=== PATIENT | female | born 1990 | race Caucasian/White ===

== ENCOUNTER 2016-08-18 18:57 | Emergency (ER) | payer OTHER ==
--- NOTE | 2016-08-18 19:17 | ER Document Report ---
ED Medical Screen (RME) - General Stated Complaint: SORE THROAT,COUGH,CONGESTION Mode of Arrival: Ambulatory Information source: Patient Notes: Patient presents to the emergency department with complaints of sore throat cough for the past 2 days. Denies fever vomiting diarrhea. Reports she is prone to strep. No strep exposure. I have greeted and performed a rapid initial assessment of this patient. A comprehensive ED assessment and evaluation of the patient, analysis of test results and completion of the medical decision making process will be conducted by additional ED providers. TRAVEL OUTSIDE OF THE [place] IN LAST 30 DAYS: No - Related Data Allergies/Adverse Reactions: ferumoxytol [From Feraheme] Adverse Reaction (Mild, Verified 06/07/15 15:37) Shortness of Breath Past Medical History - Past Medical History Cardiac Medical History: Denies: Hx Coronary Artery Disease, Hx Heart Attack, Hx Hypertension Pulmonary Medical History: Reports: Hx Bronchitis - hx of Denies: Hx Asthma, Hx COPD, Hx Pneumonia Neurological Medical History: Denies: Hx Cerebrovascular Accident, Hx Seizures Renal/ Medical History: Reports: Hx Ovarian Cysts - PCOS Musculoskeltal Medical History: Denies Hx Arthritis Psychiatric Medical History: Denies: Hx Depression Past Surgical History: Reports: Hx Cholecystectomy, Hx Dilation and Curettage, Hx Gynecologic Surgery - D&C at age of 11, Hx Oral Surgery - Immunizations Immunizations up to date: Yes Hx Diphtheria, Pertussis, Tetanus Vaccination: Yes
[2016-08-18 19:20] VITALS: BP 111/70
[2016-08-18] MEDS ORDERED: ALBUTEROL SULFATE 0.083% NEB 2.5 MG/3 ML AMPUL NEB ONE (21:03)
--- NOTE | 2016-08-18 21:08 | ER Document Report ---
HPI - HPI Patient complains to provider of: cough Pain Level: 3 Context: Patient is a 25-year-old female presents to the emergency Department complaining of cough and subsequent sore throat that started yesterday. Patient states that she is not a smoker has a history of strep throat. States she has occasional shortness of breath and wheezing from this cough. Denies any fever denies any history of asthma. - CARDIOVASCULAR Cardiovascular: DENIES: Chest pain - REPRODUCTIVE LMP: unknown Reproductive: DENIES: : - DERM Skin Color: Normal Past Medical History - General Information source: Patient - Social History Smoking Status: Never Smoker Chew tobacco use (# tins/day): No Frequency of alcohol use: None Drug Abuse: None Family History: Arthritis, Hyperlipidemia, Hypertension, Thyroid Disfunction Patient has suicidal ideation: No Patient has homicidal ideation: No - Past Medical History Cardiac Medical History: Denies: Hx Coronary Artery Disease, Hx Heart Attack, Hx Hypertension Pulmonary Medical History: Reports: Hx Bronchitis - hx of Denies: Hx Asthma, Hx COPD, Hx Pneumonia Neurological Medical History: Denies: Hx Cerebrovascular Accident, Hx Seizures Renal/ Medical History: Reports: Hx Ovarian Cysts - PCOS. Denies: Hx Peritoneal Dialysis Musculoskeltal Medical History: Denies Hx Arthritis Psychiatric Medical History: Denies: Hx Depression Past Surgical History: Reports: Hx Cholecystectomy, Hx Dilation and Curettage, Hx Gynecologic Surgery - D&C at age of 11, Hx Oral Surgery - Immunizations Immunizations up to date: Yes Hx Diphtheria, Pertussis, Tetanus Vaccination: No Vertical Provider Document - CONSTITUTIONAL Agree With Documented VS: Yes Exam Limitations: No Limitations General Appearance: WD/WN, No Apparent Distress, Other - Visibly uncomfortable - INFECTION CONTROL TRAVEL OUTSIDE OF THE [place] IN LAST 30 DAYS: No - HEENT HEENT: Atraumatic, Normal ENT Exam, Normocephalic, PERRLA - NECK Neck: Normal Inspection. negative: Lymphadenopathy-Left, Lymphadenopathy-Right - RESPIRATORY Respiratory: No Respiratory Distress, Wheezing. negative: Rales, Rhonchi O2 Sat by Pulse Oximetry: 98 - CARDIOVASCULAR Cardiovascular: Regular Rate, Regular Rhythm, No Murmur Pulses: Normal: Radial - GI/ABDOMEN Gastrointestinal: Abdomen Soft, Abdomen Non-Tender, No Organomegaly, Normal Bowel Sounds - MUSCULOSKELETAL/EXTREMETIES Musculoskeletal/Extremeties: MAEW, FROM, Non-Tender, No Edema - NEURO Level of Consciousness: Awake, Alert, Appropriate Motor/Sensory: No Motor Deficit, No Sensory Deficit - DERM Integumentary: Warm, Dry, No Rash Course - Re-evaluation Re-evalutation: 08/18/16 21:07 Patient is a 25-year-old female presents emergency Department complaining of cough since yesterday. X-ray does not reveal any evidence of acute cardiopulmonary process. Rapid strep was negative. Will give a breathing treatment monitor for effectiveness 08/18/16 21:43 Wheezing has improved greatly. Patient clinically feeling better and ready to go home. At this time patient is hemodynamically stable and ready for discharge - Vital Signs Vital signs: Temp Pulse Resp BP Pulse Ox 98.5 F 80 20 111/70 98 08/18/16 19:17 08/18/16 19:17 08/18/16 20:37 08/18/16 19:17 08/18/16 19:17 - Diagnostic Test Radiology reviewed: Image reviewed, Reports reviewed Discharge - Discharge Clinical Impression: Bronchitis Condition: Good Disposition: HOME, SELF-CARE Instructions: Bronchitis (OM), Bronchodilators (OM) Prescriptions: Acetaminophen with Codeine [Tylenol with Codeine 120 mg-12 mg/5 ml] 5 ml PO Q4HP PRN #120 ml PRN Reason: Ipratropium [place] [Atrovent Hfa Inhalation Aerosol 12.9 gm Mdi] 2 puff IH Q4HP PRN #1 inhaler PRN Reason: Referrals: [facility] [NO LOCAL MD] - Follow up as needed
[2016-08-18] MEDS ORDERED: IPRATROPIUM BROMIDE HFA 17 MCG/PUFF 200 PUFF/12.9 GM MDI IH PRN (21:46)
== END 2016-08-18 22:08 | disposition home or self-care (01) ==
LOC: ER 18:57
DX: J40 Bronchitis, not specified as acute or chronic (principal); E28.2 Polycystic ovarian syndrome; Z90.49 Acquired absence of other specified parts of digestive tract
CPT/HCPCS: 94640; 99283; 87070; 87880; 71020; J3490